=== PATIENT | male | born 1970 | race Caucasian/White ===

== ENCOUNTER 2023-12-15 10:43 | Emergency (ER) | payer OTHER ==
[2023-12-15 13:54] LABS: Absolute Basophils 0.1 K/uL (0-0.5); Absolute Eosinophils 0.1 K/uL (0-0.5); Absolute Lymphocytes (CBC) 1.7 K/uL (0.7-4.9); Absolute Monocytes 0.8 K/uL (0.1-1.3); Basophils % 0.7 % (0-1.3); Eosinophils % 1.2 % (0-4.4); Hematocrit 51.3 % (39.6-49.0); Hemoglobin 17.8 g/dL (13.6-17.9); Lymphocytes % 19.6 % (15.3-44.8); MCH 29.9 pg (27.0-35.0); MCHC 34.7 g/dL (32.0-36.0); MCV 86.1 fL (80-100); MPV 6.4 fL (7.6-11.3); Monocytes % 9.2 % (3.3-12.3); Neutrophils % 69.3 % (41.7-73.7); Nucleated Red Blood Cells % 0.1 % (0-0); Platelets 266 thou/uL (152-406); RBC Red Blood Cell Count 5.96 M/uL (4.33-5.43)
[2023-12-15 14:26] LABS: Albumin 3.8 g/dL (3.4-5.0); Albumin/Globulin Ratio 0.9 (1.1-1.8); Anion Gap 7.1 mEq/L (5.0-15.0); Bilirubin Direct 0.2 mg/dL (0-0.2); Bilirubin Indirect, Calculated 0.7 mg/dL (0.2-0.8); Bilirubin Total 0.9 mg/dL (0.2-1.0); Globulin 4.1 g/dL (2.3-3.5); Potassium 4.1 mEq/L (3.5-5.1); Protein, Total 7.9 g/dL (6.4-8.2); Troponin High Sensitivity 10.9 pg/mL (<58.9)
--- NOTE | 2023-12-15 14:34 | EDPHYS ---
Physician Documentation [facility] Name: Rik Harvey Age: 53 yrs Sex: Male : 1970 Arrival Date: 12/15/2023 Time: 10:43 Bed 11 Private MD: ED Physician Jose L Smith HPI: 12/14 11:53 This 53 yrs old Male presents to ER via Ambulatory with complaints of Syncope, High rt Blood Pressure. 11:53 Patient with history of hypertension presents to the ED with near syncope. Patient rt states that he checked his blood pressure, noticed 140s. The patient reports that he was walking in [employer], when he became acutely lightheaded, got tunnel vision and sweating. States the symptoms lasted for about a minute, have completely resolved. Denies other acute complaints, symptoms are moderate severity, no other aggravating or alleviating factors.. Historical: - Allergies: 11:11 No Known Allergies; ph - Home Meds: 11:11 amlodipine 10 mg tablet 1 tab daily [Active]; lisinopril 30 mg Oral tablet 1 tab daily ph [Active]; - PMHx: 11:11 Hypertensive disorder; ph - Immunization history:: Adult Immunizations unknown. - Infectious Disease History:: Denies. - Family history:: not pertinent. ROS: 12:07 Constitutional: Negative for fever, chills, and weight loss, Cardiovascular: Negative rt for chest pain, palpitations, and edema, Respiratory: Negative for shortness of breath, cough, wheezing, and pleuritic chest pain, Abdomen/GI: Negative for abdominal pain, nausea, vomiting, diarrhea, and constipation, MS/Extremity: Negative for injury and deformity, 12:07 Neuro: Positive for near syncope, Negative for loss of consciousness, Exam: 12:07 Constitutional: This is a well developed, well nourished patient who is awake, alert, rt and in no acute distress. Head/Face: Normocephalic, atraumatic. Chest/axilla: Normal chest wall appearance and motion. Nontender with no deformity. No lesions are appreciated. Cardiovascular: Regular rate and rhythm with a normal S1 and S2. No gallops, murmurs, or rubs. Normal PMI, no JVD. No pulse deficits. Respiratory: Lungs have equal breath sounds bilaterally, clear to auscultation and percussion. No rales, rhonchi or wheezes noted. No increased work of breathing, no retractions or nasal flaring. Abdomen/GI: Soft, non-tender, with normal bowel sounds. No distension or tympany. No guarding or rebound. No evidence of tenderness throughout. Skin: Warm, dry with normal turgor. Normal color with no rashes, no lesions, and no evidence of cellulitis. MS/ Extremity: Pulses equal, no cyanosis. Neurovascular intact. Full, normal range of motion. Neuro: Awake and alert, GCS 15, oriented to person, place, time, and situation. Cranial nerves II-XII grossly intact. Motor strength 5/5 in all extremities. Sensory grossly intact. Cerebellar exam normal. Normal gait. 12:07 ECG was reviewed by the Attending Physician. Vital Signs: 11:08 BP 128 / 83; Pulse 73; Resp 18; Temp 97.5; Pulse Ox 98% on R/A; ph MDM: 11:16 Medical Screening Exam initiated rt 17:32 Differential Diagnosis: vasovagal episode, Medication side effect, dysrhythmia, rt electrolyte disturbance. Data reviewed: vital signs, nurses notes, lab test result(s), EKG, radiologic studies, Reviewed previous EKG, appears to be unchanged. I considered the following discharge prescriptions or medication management in the emergency department Medications were administered in the Emergency Department. See MAR. Test considered but Not performed: CT: Denies head trauma, CT scan not indicated. Care significantly affected by the following chronic conditions: Hypertension. Counseling: I had a detailed discussion with the patient and/or guardian regarding the historical points, exam findings, and any diagnostic results supporting the discharge/admit diagnosis, lab results, the need for outpatient follow up, to return to the emergency department if symptoms worsen or persist or if there are any questions or concerns that arise at home. Response to treatment: the patient's symptoms have resolved after treatment. 12/14 11:16 Order name: Basic Metabolic Panel; Complete Time: 14:27 rt 12/14 11:16 Order name: CBC with Diff; Complete Time: 14:27 rt 12/14 11:16 Order name: LFT's; Complete Time: 14:27 rt 12/14 11:16 Order name: Troponin HS; Complete Time: 14:27 rt 12/14 11:16 Order name: Cardiac monitoring; Complete Time: 13:42 rt 12/14 11:16 Order name: EKG - Nurse/Tech; Complete Time: 11:25 rt 12/14 11:16 Order name: IV Saline Lock; Complete Time: 13:42 rt 12/14 11:16 Order name: Labs collected and sent; Complete Time: 13:42 rt 12/14 11:16 Order name: O2 Per Protocol; Complete Time: 13:29 rt 12/14 11:16 Order name: O2 Sat Monitoring; Complete Time: 13:29 rt EC:07 Rate is 66 beats/min. Rhythm is regular, Normal Sinus Rhythm with No ectopy. QRS [place] rt is Normal. ND interval is normal. QRS interval is normal. QT interval is normal. No Q waves. No ST changes noted. Interpreted by me. Administered Medications: No medications were administered Disposition Summary: 12/15/23 14:34 Discharge Ordered Notes: Location: Home rt Problem: new rt Symptoms: have improved rt Condition: Stable rt Diagnosis - Syncope Near rt Followup: rt - With: Private Physician - When: 2 - 3 days - Reason: Discharge Instructions: - Discharge Summary Sheet rt - Near-Syncope rt Forms: - Medication Reconciliation Form rt - Antibiotic Education rt - Prescription Opioid Use rt - Patient Portal Instructions rt - Leadership Thank You Letter rt Signatures: Dispatcher [employer] EDKate Mendez RN RN ph Jose L Smith MD MD rt Corrections: (The following items were deleted from the chart) 11:17 11:17 BASIC METABOLIC PANEL+C.LAB.BRZ ordered. [facility] EDIA 11:17 11:17 CBC+H.LAB.BRZ ordered. [facility] 11:17 11:17 HEPATIC FUNCTION+C.LAB.BRZ ordered. [facility] EDIA 11:17 11:17 Troponin High Sensitivity+C.LAB.BRZ ordered. [facility]IA 12:08 11:53 Patient with history of hypertension presents to the ED with near syncope. rt Patient states that he checked his blood pressure, noticed 140s. The patient reports that he was walking in [employer], when he became acutely lightheaded, got tunnel vision and sweating. rt
--- NOTE | 2023-12-15 14:34 | ER ---
Nurse's Notes [facility] Name: Rik Harvey Age: 53 yrs Sex: Male : 1970 Arrival Date: 12/15/2023 Time: 10:43 Bed 11 Private MD: Diagnosis: Syncope Near Presentation: 12/14 11:08 Chief complaint: Patient states: Was at [employer] shopping, became dizzy and ph diaphoretic, "almost passed out" , takes medication for high BP, feels fine now. Coronavirus screen: Vaccine status: Patient reports being unvaccinated. Ebola Screen: No symptoms or risks identified at this time. Initial Sepsis Screen: Does the patient meet any 2 criteria? No. Patient's initial sepsis screen is negative. Does the patient have a suspected source of infection? No. Patient's initial sepsis screen is negative. Risk Assessment: Do you want to hurt yourself or someone else? Patient reports no desire to harm self or others. Onset of symptoms was December 15, 2023. 11:08 Method Of Arrival: Ambulatory ph 11:08 Acuity: YAEL 3 ph Triage Assessment: 11:11 General: Appears in no apparent distress. Behavior is calm, cooperative. Pain: Denies ph pain. Neuro: Level of Consciousness is awake, alert, obeys commands, Oriented to person, place, time, situation, Reports near syncope. Derm: Skin is pink, warm \\T\\ dry. Historical: - Allergies: 11:11 No Known Allergies; ph - Home Meds: 11:11 amlodipine 10 mg tablet 1 tab daily [Active]; lisinopril 30 mg Oral tablet 1 tab daily ph [Active]; - PMHx: 11:11 Hypertensive disorder; ph - Immunization history:: Adult Immunizations unknown. - Infectious Disease History:: Denies. - Family history:: not pertinent. Screenin:43 [facility] ED Fall Risk Assessment (Adult) History of falling in the last 3 months, ss including since admission No falls in past 3 months (0 pts) Confusion or Disorientation No (0 pts) Intoxicated or Sedated No (0 pts) Impaired Gait No (0 pts) Mobility Assist Device Used No (0 pt) Altered Elimination No (0 pt) Score/Fall Risk Level 0 - 2 = Low Risk Oriented to surroundings. Abuse screen: Denies threats or abuse. Denies injuries from another. Nutritional screening: No deficits noted. Tuberculosis screening: Never had TB. Assessment: 13:43 General: Appears in no apparent distress. comfortable, Behavior is calm, cooperative. ss Neuro: Level of Consciousness is awake, alert, obeys commands, Oriented to person, place, time, situation. Neuro: Reports dizziness episode lasting only moments while at a store. Has no complaints at this time. Respiratory: Airway is patent Respiratory effort is even, unlabored, Respiratory pattern is regular, symmetrical. GI: No signs and/or symptoms were reported involving the gastrointestinal system. Abdomen is non-distended. : No signs and/or symptoms were reported regarding the genitourinary system. Derm: Skin is intact, is healthy with good turgor, Skin is pink, warm \\T\\ dry. normal. Musculoskeletal: Range of motion: intact in all extremities. Vital Signs: 11:08 BP 128 / 83; Pulse 73; Resp 18; Temp 97.5; Pulse Ox 98% on R/A; ph ED Course: 10:45 Patient arrived in ED. mg5 11:07 Jose L Smith MD is Attending Physician. rt 11:11 Triage completed. ph 11:12 Arm band placed on Patient placed in waiting room, Patient notified of wait time. EKG ph completed in triage. Results shown to MD. 11:25 EKG done, by ED staff, reviewed by Jose L Smith MD. ph 13:42 Justine Wayne, BRENT is Primary Nurse. ss 13:43 Patient has correct armband on for positive identification. ss 13:43 No provider procedures requiring assistance completed. Inserted saline lock: 22 gauge ss in right antecubital area, using aseptic technique. Blood collected. Flushed with 10 mL NS. 14:45 IV discontinued, intact, bleeding controlled, No redness/swelling at site. Pressure ss dressing applied. Administered Medications: No medications were administered Medication: 13:43 VIS not applicable for this client. ss Outcome: 14:34 Discharge ordered by MD. rt 14:45 Patient left the ED. ph 14:45 Discharged to home ambulatory, ss 14:45 Condition: good 14:45 Discharge instructions given to patient, Instructed on discharge instructions, follow up and referral plans. Demonstrated understanding of instructions, follow-up care, Signatures: Justine Wayne RN RN Kate Szymanski RN RN ph Jose L Smith MD MD rt [place] [employer] mg5
[2023-12-15 15:24] VITALS: BP 128/83; TEMP 97.5; O2SAT 98
== END 2023-12-15 14:45 | disposition home or self-care (01) ==
LOC: ER 10:43
DX: R55 Syncope and collapse (principal); I10 Essential (primary) hypertension
CPT/HCPCS: 36415; 80048; 80076; 84484; 85025; 93005; 99284

== ENCOUNTER 2024-02-20 07:19 | Day surgery (SDC) | payer OTHER ==
[2024-02-15 08:24] LABS: Absolute Basophils 0.1 K/uL (0-0.5); Absolute Eosinophils 0.5 K/uL (0-0.5); Absolute Lymphocytes (CBC) 2.2 K/uL (0.7-4.9); Absolute Monocytes 0.6 K/uL (0.1-1.3); Basophils % 1.1 % (0-1.3); Hemoglobin 16.7 g/dL (13.6-17.9); MCH 29.9 pg (27.0-35.0); MCHC 34.1 g/dL (32.0-36.0); MCV 87.7 fL (80-100); MPV 6.4 fL (7.6-11.3); Monocytes % 6.8 % (3.3-12.3); Neutrophils % 60.1 % (41.7-73.7); Platelets 279 thou/uL (152-406); RBC Red Blood Cell Count 5.59 M/uL (4.33-5.43); Red Cell Distribution Width 14.2 % (12.1-15.2)
[2024-02-15 08:38] LABS: Anion Gap 9.6 mEq/L (5.0-15.0); Potassium 3.6 mEq/L (3.5-5.1)
--- NOTE | 2024-02-15 09:28 | RAD REPORT ---
EXAMINATION: TWO VIEW CHEST XR CLINICAL INDICATION: Pre-op pending hemorrhoidectomy TECHNIQUE: 2 views of the chest was performed. COMPARISON: No prior exam. FINDINGS: The lungs are well inflated and clear. The heart is normal in size. No displaced fractures evident. IMPRESSION: No acute or significant abnormalities.
[2024-02-20] MEDS ORDERED: CEFAZOLIN SODIUM 1 GM/VIAL ONE ×2 (07:39→08:40)
[2024-02-20] MEDS ORDERED: propofoL 200 MG/20 ML VIAL IV ONE ×2 (07:43→08:34)
[2024-02-20] MEDS ORDERED: MIDAZOLAM HCL 2 MG/2 ML INJ ONE (07:46)
[2024-02-20] MEDS ORDERED: FENTANYL CITR 100 MCG/2 ML ONE (07:47)
[2024-02-20] MEDS: Ringers Lactate 1,000 ML IV ONE (07:48)
[2024-02-20] MEDS ORDERED: ROCURONIUM 50 MG/5 ML VIAL IV ONE (07:48)
[2024-02-20] MEDS ORDERED: SUCCINYLCHOLINE 20 MG/ML (10 ML) IV ONE (08:00)
[2024-02-20] MEDS ORDERED: Phenylephrine HCl 10 MG/ML 1 ML VIAL ONE (08:31)
[2024-02-20] MEDS ORDERED: ONDANSETRON 4 MG/2 ML VIAL ONE (08:32)
[2024-02-20] MEDS ORDERED: dexAMETHasone 4 MG/ML VIAL ONE (08:33)
[2024-02-20] MEDS: BUPIVACAINE 0.5% PF 10 ML VIAL ONE (08:45)
--- NOTE | 2024-02-20 08:56 | P.OP ---
Date of Service: 02/20/24 Preop diagnosis: Symptomatic external hemorrhoids x 2 Postop diagnosis: Same Procedure performed: Examiner anesthesia, proctoscopy and hemorrhoidectomy x 2 Surgeon: Checo Abernathy MD [facility] Case Manager: None Estimated blood loss: Minimal Specimen: External hemorrhoids x 2 Findings: As above Anesthesia: General Complications: None Drains: None Fluids and blood products: Nonapplicable Disposition: Recovery room Operative note: Patient brought to the OR and placed in the supine position. General anesthesia began. Patient placed in the lithotomy position. Patient prepped and draped in usual sterile fashion. Examiner anesthesia and proctoscopy performed. Patient had an inflamed anterior midline external hemorrhoid and a small hemorrhoid in the posterior midline. No other evidence of disease identified. Harmonic scalpel used to excise both hemorrhoids. Hemorrhoids labeled appropriately and sent to pathology as specimen. There was no bleeding noted. Marcaine 0.5% was infiltrated locally for postop pain control. Sterile dressing applied and patient awakened. Patient taken to recovery room in good general condition. CC:
[2024-02-20] MEDS ORDERED: HYDROCODONE/APAP 7.5/325 MG TAB PO PRN (09:00)
[2024-02-20 10:14] VITALS: BP 133/83; TEMP 97.5; O2SAT 100
== END 2024-02-20 10:11 | disposition home or self-care (01) ==
LOC: OR 07:19
PROVIDERS: ATTEND Surgery
PROC: 0DJD8ZZ Inspection of Lower Intestinal Tract, Via Natural or Artificial Opening Endoscopic (ICD-10-PCS; 2024-02-20)
PROC: 06BY0ZC Excision of Hemorrhoidal Plexus, Open Approach (ICD-10-PCS; principal; 2024-02-20 08:19)
DX: K64.4 Residual hemorrhoidal skin tags (principal)
CPT/HCPCS: 85025; 80048; 36415; 88304; 71046; 46250; 45300; J2704; J1100; J2371; J2250; J3010; J2405; J7120; J0690 ×2